=== PATIENT | female | born 1960 | race African-American/Black ===

== ENCOUNTER 2017-08-09 16:48 | Emergency (ER) | payer OTHER ==
[~2017-08-09] VITALS: Ht 167.6 cm; Wt 60.0 kg
[2017-08-09 20:20] VITALS: BP 132/72
== END 2017-08-09 20:40 | disposition home or self-care (01) ==
LOC: ER 16:48
DX: H11.32 Conjunctival hemorrhage, left eye (principal); Z98.890 Other specified postprocedural states
CPT/HCPCS: 99282

== ENCOUNTER 2018-07-28 03:21 | Inpatient (IN) | payer OTHER ==
[~2018-07-28] VITALS: Ht 160 cm; Wt 53.5 kg
[2018-07-28] VITALS (11 sets, daily range): BP systolic 112–150; BP diastolic 57–87
[2018-07-28] MEDS ORDERED: SODIUM CHLORIDE 0.9% 1,000 ML IV ONE (07:02)
[2018-07-28 07:35] LABS: CHLORIDE 97 mEq/L (98-107)
[2018-07-28 07:40] LABS: MEAN CORPUSCULAR VOLUME 65.9 fL (81.0-99.0); MEAN PLATELET VOLUME 8.8 fl (7.4-10.4); PLATELET 233 x1000/uL (130-400); RED BLOOD CELL COUNT 3.49 mill/uL (4.2-5.4)
[2018-07-28 07:41] LABS: ETHANOL BLOOD < 10 mg/dL
[2018-07-28 07:44] LABS: CREATINE KINASE 60 IU/L (26-192)
[2018-07-28 07:51] LABS: HEMOGLOBIN. 6.6 g/dL (12.0-16.0)
[2018-07-28] MEDS ORDERED: POTASSIUM CHLORIDE 20MEQ TABLET SR PO ONE (08:15)
[2018-07-28 08:36] LABS: PLATELET ESTIMATE NORMAL
[2018-07-28] MEDS ORDERED: LORAZEPAM 2MG/ML CPJ IV PRN (10:15)
[2018-07-28] MEDS ORDERED: ONDANSETRON HCL 4MG/2ML INJ IV PRN (10:15)
[2018-07-28 11:07] LABS: TOTAL IRON BINDING CAPACITY 360 ug/dL (250-450)
[2018-07-28] MEDS: LEVETIRACETAM 500MG TABLET PO SCH ×2 (11:17→21:57)
[2018-07-28] MEDS: ACETAMINOPHEN 325MG TABLET PO PRN ×2 (13:18→17:56)
[2018-07-28] MEDS: FOLIC ACID 1 MG, THIAMINE HCL 100 MG, MVI, ADULT NO.1 10 ML in DEXTROSE 5% WATER 1,000 ML IV SCH ×4 (13:33)
[2018-07-28] MEDS: CHLORDIAZEPOXIDE 25MG CAPSULE PO SCH ×2 (13:56→21:57)
[2018-07-28] MEDS: CEFTRIAXONE 1 G PREMIX 50 ML IV SCH (15:42)
[2018-07-28] MEDS: IRON SUCROSE COMPLEX 100 MG/5 ML ML IV SCH (21:57)
[2018-07-28 22:05] LABS: CLARITY URINE CLEAR (CLEAR); COLOR URINE YELLOW (YELLOW); KETONES URINE NEGATIVE (NEGATIVE); LEUKOCYTE ESTERASE URINE NEGATIVE (NEGATIVE); NITRITE URINE NEGATIVE (NEGATIVE); OCCULT BLOOD URINE NEGATIVE (NEGATIVE); PH URINE 5.5 (4.5-8.0); PROTEIN URINE NEGATIVE (NEGATIVE); SPECIFIC GRAVITY URINE 1.003 (1.005-1.030)
[2018-07-28 22:16] LABS: *AMPHETAMINES SCREEN URINE NEGATIVE (NEGATIVE); *BARBITURATES SCREEN URINE NEGATIVE (NEGATIVE); *BENZODIAZEPINES SCREEN URINE NEGATIVE (NEGATIVE); *COCAINE SCREEN URINE NEGATIVE (NEGATIVE); METHADONE URINE SCREEN NEGATIVE (NEGATIVE); OPIATES URINE SCREEN NEGATIVE (NEGATIVE); PHENCYCLIDINE URINE SCREEN NEGATIVE (NEGATIVE)
[2018-07-28 22:17] LABS: CANNABINOID URINE SCREEN NEGATIVE (NEGATIVE)
[2018-07-29] VITALS (11 sets, daily range): BP systolic 115–158; BP diastolic 65–89
[2018-07-29 03:12] LABS: HEMATOCRIT. 24.5 % (36.0-48.0); HEMOGLOBIN. 7.5 g/dL (12.0-16.0); MEAN CORPUSCULAR HEMOGLOBIN 21.3 pg (28.0-32.0); MEAN CORPUSCULAR VOLUME 69.6 fL (81.0-99.0); MEAN PLATELET VOLUME 8.6 fl (7.4-10.4); PLATELET 197 x1000/uL (130-400); RED BLOOD CELL COUNT 3.53 mill/uL (4.2-5.4); RED CELL DISTRIBUTION WIDTH 27.7 % (11.6-14.6)
[2018-07-29 03:15] LABS: CHLORIDE 101 mEq/L (98-107)
[2018-07-29 04:47] LABS: NUCLEATED RED BLOOD CELLS 2 /100 WBC; PLATELET ESTIMATE NORMAL
[2018-07-29] MEDS: CHLORDIAZEPOXIDE 25MG CAPSULE PO SCH ×3 (05:54→21:59)
[2018-07-29] MEDS: LEVETIRACETAM 500MG TABLET PO SCH ×2 (09:36→21:04)
[2018-07-29] MEDS: FOLIC ACID 1 MG, THIAMINE HCL 100 MG, MVI, ADULT NO.1 10 ML in DEXTROSE 5% WATER 1,000 ML IV SCH ×4 (11:15)
[2018-07-29] MEDS: IRON SUCROSE COMPLEX 100 MG/5 ML ML IV SCH (18:09)
[2018-07-29] MEDS: CEFTRIAXONE 1 G PREMIX 50 ML IV SCH (18:09)
[2018-07-29] MEDS: ACETAMINOPHEN 325MG TABLET PO PRN (23:10)
[2018-07-30] VITALS: BP 132/79
[2018-07-30 00:44] LABS: HEMATOCRIT 28.2 % (36.0-48.0); HEMOGLOBIN 8.9 g/dL (12.0-16.0)
[2018-07-30 01:03] LABS: INR 1.1; PROTHROMBIN TIME 11.5 sec (9.6-11.0)
[2018-07-30 04:00] VITALS: BP 120/75
[2018-07-30] MEDS: CHLORDIAZEPOXIDE 25MG CAPSULE PO SCH (06:07)
[2018-07-30 08:00] VITALS: BP 130/80
[2018-07-30] MEDS: LEVETIRACETAM 500MG TABLET PO SCH (08:49)
[2018-07-30 09:43] VITALS: BP 139/76
== END 2018-07-30 16:25 | disposition home or self-care (01) | DRG 53 ==
LOC: ER 03:21 → 7WST 08:11 → ENRESERV 08:28
PROVIDERS: ADMIT Internal Medicine; ATTEND Internal Medicine
PROC: 30233N1 Transfusion of Nonautologous Red Blood Cells into Peripheral Vein, Percutaneous Approach (ICD-10-PCS; principal; 2018-07-28)
DX: G40.89 Other seizures (principal); E87.8 Other disorders of electrolyte and fluid balance, not elsewhere classified; E44.0 Moderate protein-calorie malnutrition; E87.1 Hypo-osmolality and hyponatremia; D50.9 Iron deficiency anemia, unspecified; F10.10 Alcohol abuse, uncomplicated; E87.6 Hypokalemia; F41.9 Anxiety disorder, unspecified; W06.XXXA Fall from bed, initial encounter; Y93.89 Activity, other specified; Y92.89 Other specified places as the place of occurrence of the external cause; Y99.8 Other external cause status; Z68.20 Body mass index [BMI] 20.0-20.9, adult
CPT/HCPCS: 36415; 71045; 80048; 80305; 80320; 82550; 82728; 82962; 83540; 83550; 83605; 84484; 85014; 85018; 85049; 85384; 86850; 86900; 86920; 93005; 93970; 99285; J0696; J3411; J3490; J7030; J7040; J7070; P9016; G0480

== ENCOUNTER 2021-04-08 14:53 | Emergency (ER) | payer OTHER ==
[~2021-04-08] VITALS: Ht 160 cm; Wt 66.0 kg
[2021-04-08 15:21] VITALS: BP 183/104
[2021-04-08] MEDS ORDERED: P20 PO (16:41)
[2021-04-08] MEDS ORDERED: DOXY-326 PO (16:41)
== END 2021-04-08 17:09 | disposition home or self-care (01) ==
LOC: ER 14:53
DX: K14.0 Glossitis (principal)
CPT/HCPCS: 82962; 99283